=== PATIENT | female | born 1960 | race Caucasian/White ===

== ENCOUNTER 2016-11-10 21:11 | Emergency (ER) | payer OTHER ==
[~2016-11-10] VITALS: Ht 153.7 cm; Wt 65.6 kg
[~2016-11-10 21:11] MED LIST: ACET-62 PO; ALBU18HF2 ORAL INH; CHOL20002 PO; DIPH25CA84 PO; FLUT1DIS3 ORAL INH; IPRA42SP2 NAS; KETO10DR13 BOTH EYES; MELA3TAB30 PO
--- OUTSIDE RECORDS SUMMARY | 2016-11-10 21:16 | XMS REPORT ---
Author Elin Melgar eClinicalWorks Address Unknown Phone Unavailable Care Team Providers Care Geography Department Chair Name Role Phone Elin Maldonado CP Unavailable Allergies, Adverse Reactions, Alerts Substance Reaction Event Type Codeine Sulfate breathing trouble Drug Allergy Problems Problem Type Condition Code Onset Dates Condition Status Assessment COPD 496 Active Problem COPD 496 Active Medications Medication Code System Code Instructions Start Date End Date Status Dosage Tylenol [facility] [address]-19 325 MG Orally every 6 hrs 1 tablet as needed Ibuprofen [facility] [address]-10 200 MG Orally every 6 hrs 1 tablet as needed Proventil HFA [facility] [address]-57 108 (90 Base) MCG/ACT Inhalation every 4 hrs 2 puffs as needed Benadryl [facility] [address]-40 25 MG Orally every 6 hrs 1 tablet as needed Melatonin [facility] [address]-11 3 MG Orally Once a day 1 tablet at bedtime as needed with food Ventolin HFA [facility] [address]-89 108 (90 Base) MCG/ACT Inhalation every 4 hrs Apr 22, 2014 2 puffs as needed Advair Diskus [facility] [address]-56 250-50 MCG/DOSE Inhalation Twice a day 1 puff Procedures Procedure Coding System Code Date COMPREHENSIVE METABOLIC PANEL CPT-4 55897 September 17, 2014 LIPID PANEL CPT-4 50106 September 17, 2014 COMPLETE CBC W/AUTO DIFF WBC CPT-4 86520 September 17, 2014 OFFICE VISIT, EST-LOW COMPLEXITY (15 MIN.) CPT-4 39269 September 17, 2014 TSH CPT-4 17169 September 17, 2014 Vital Signs Date/Time: September 17, 2014 Height 61.5 in Weight 159.0 lbs Temperature 98.1 F Blood Pressure Diastolic 70 mm Hg Blood Pressure Systolic 130 mm Hg Cardiac Monitoring Heart Rate 84 /min BMI 29.55 Index Respiratory Rate 16 /min Results No Known Results Summary Purpose eClinicalWorks Submission
--- OUTSIDE RECORDS SUMMARY | 2016-11-10 21:16 | XMS REPORT ---
Author Author Elin Maldonado [facility] eClinicalWorks Address Unknown Phone Unavailable Care Team Providers Care Medical Leader Name Role Phone Elin Maldonado Unavailable Allergies No Known Allergies Problems Problem Type Condition ICD-9 Code Onset Dates Condition Status Problem COPD 496 Active Medications Medication Code System Code Instructions Start Date End Date Status Dosage Ipratropium [place] [facility] [address]-76 0.02 % Inhalation Three to four times a day Jun 16, 2014 September 14, 2014 Active as directed Vital Signs Date/Time: Mar 19, 2014 Height 61.5 inches Weight 145.12 lbs Temperature 98.5 F Blood Pressure Diastolic 54 mm Hg Blood Pressure Systolic 112 mm Hg Cardiac Monitoring Heart Rate 100 Beats per Minute BMI 26.97 Index Respiratory Rate 16 per Minute Results No Known Results Summary Purpose eClinicalWorks Submission
--- OUTSIDE RECORDS SUMMARY | 2016-11-10 21:16 | XMS REPORT ---
Author Elin Melgar [facility] eClinicalWorks Address Unknown Phone Unavailable Care Team Providers Care Graphic Art Designer Name Role Phone Elin Maldonado CP Unavailable Allergies, Adverse Reactions, Alerts Substance Reaction Event Type Codeine Sulfate breathing trouble Drug Allergy Problems Problem Type Condition ICD-9 Code Onset Dates Condition Status Assessment Chest pain, other 786.59 Active Assessment COPD 496 Active Problem COPD 496 Active Medications Medication Code System Code Instructions Start Date End Date Status Dosage Tramadol HCl [facility] [address]-97 50 MG Orally every 6 hrs Mar 11, 2014 Apr 10, 2014 Active 1 tablet as needed Advair Diskus [facility] [address]-41 250-50 MCG/DOSE Inhalation Twice a day Active 1 puff Melatonin [facility] [address]-33 3 MG Orally Once a day Active 1 tablet at bedtime as needed with food Proventil HFA [facility] [address]-30 108 (90 Base) MCG/ACT Inhalation every 4 hrs Active 2 puffs as needed Ibuprofen [facility] [address]-77 200 MG Orally every 6 hrs Active 1 tablet as needed Tylenol [facility] [address]-13 325 MG Orally every 6 hrs Active 1 tablet as needed Flovent Diskus [facility] [address]-05 250 MCG/BLIST Inhalation Twice a day Mar 19, 2014 Apr 18, 2014 Active 1 puff Benadryl [facility] [address]-06 25 MG Orally every 6 hrs Active 1 tablet as needed Procedures Procedure Coding System Code Date OFFICE VISIT, EST-LOW COMPLEXITY (15 MIN.) CPT-4 84315 Mar 19, 2014 Vital Signs Date/Time: Mar 19, 2014 Height 61.5 inches Weight 145.12 lbs Temperature 98.5 F Blood Pressure Diastolic 54 mm Hg Blood Pressure Systolic 112 mm Hg Cardiac Monitoring Heart Rate 100 Beats per Minute BMI 26.97 Index Respiratory Rate 16 per Minute Results No Known Results Summary Purpose eClinicalWorks Submission
--- OUTSIDE RECORDS SUMMARY | 2016-11-10 21:16 | XMS REPORT ---
Author Author Elin Maldonado [facility] eClinicalWorks Address Unknown Phone Unavailable Care Team Providers Care Cleaning Attendant Name Role Phone Elin Maldonado Unavailable Allergies No Known Allergies Problems Problem Type Condition ICD-9 Code Onset Dates Condition Status Problem COPD 496 Active Medications No Known Medications Vital Signs Date/Time: Mar 19, 2014 Height 61.5 inches Weight 145.12 lbs Temperature 98.5 F Blood Pressure Diastolic 54 mm Hg Blood Pressure Systolic 112 mm Hg Cardiac Monitoring Heart Rate 100 Beats per Minute BMI 26.97 Index Respiratory Rate 16 per Minute Results No Known Results Summary Purpose eClinicalWorks Submission
--- OUTSIDE RECORDS SUMMARY | 2016-11-10 21:16 | XMS REPORT ---
Author Author Elin Maldonado [facility] eClinicalWorks Address Unknown Phone Unavailable Care Team Providers Care Test Pilot Name Role Phone Elin Maldonado Unavailable Allergies [...]
--- OUTSIDE RECORDS SUMMARY | 2016-11-10 21:16 | XMS REPORT ---
Author Elin Melgar [facility] eClinicalWorks Address Unknown Phone Unavailable Care Team Providers Care Tomahawk Weapon System Operator Name Role Phone Elin Maldonado Unavailable Allergies No Known Allergies Problems Problem Type Condition ICD-9 Code Onset Dates Condition Status Problem COPD 496 Active Medications No Known Medications Results No Known Results Summary Purpose eClinicalWorks Submission
--- OUTSIDE RECORDS SUMMARY | 2016-11-10 21:16 | XMS REPORT ---
Author Author Elin Maldonado [facility] eClinicalWorks Address Unknown Phone Unavailable Care Team Providers Care Party Plan Demonstrator Name Role Phone Elin Maldonado Unavailable Allergies No Known Allergies Problems Problem Type Condition Code Onset Dates Condition Status Assessment COPD 496 Active Problem COPD 496 Active Medications Medication Code System Code Instructions Start Date End Date Status Dosage Advair Diskus [facility] [address]-12 250-50 MCG/DOSE Inhalation Twice a day 1 puff Ventolin HFA [facility] [address]-27 108 (90 Base) MCG/ACT Inhalation every 4 hrs Apr 22, 2014 2 puffs as needed Results No Known Results Summary Purpose eClinicalWorks Submission
--- OUTSIDE RECORDS SUMMARY | 2016-11-10 21:16 | XMS REPORT ---
Author Author Elin Maldonado [facility] eClinicalWorks Address Unknown Phone Unavailable Care Team Providers Care Driving Teacher Name Role Phone Elin Maldonado Unavailable Allergies [...]
--- OUTSIDE RECORDS SUMMARY | 2016-11-10 21:16 | XMS REPORT ---
Author Author Dominic Farias Organization eClinicalWorks Address Unknown Phone Unavailable Care Team Providers Care Skiing Teacher Name Role Phone Dominic Farias CP Unavailable Allergies, Adverse Reactions, Alerts Substance Reaction Event Type Codeine Sulfate breathing trouble Drug Allergy Problems Problem Type Condition Code Onset Dates Condition Status Assessment Elevated blood-pressure reading, without diagnosis of hypertension R03.0 Active Problem Nicotine dependence, unspecified, uncomplicated F17.200 Active Problem COPD 496 Active Problem Chronic obstructive pulmonary disease, unspecified J44.9 Active Assessment Encounter for screening for lipoid disorders Z13.220 Active Assessment Insomnia, unspecified G47.00 Active Assessment Chronic obstructive pulmonary disease, unspecified J44.9 Active Assessment Nicotine dependence, unspecified, uncomplicated F17.200 Active Medications Medication Code System Code Instructions Start Date End Date Status Dosage Proventil HFA [facility] [address]-58 108 (90 Base) MCG/ACT Inhalation every 4 hrs 2 puffs as needed Ibuprofen [facility] [address]-57 200 MG Orally every 6 hrs 1 tablet as needed Advair Diskus [facility] [address]-81 250-50 MCG/DOSE Inhalation Twice a day [address] [facility] [address]-87 25 MG Orally every 6 hrs 1 tablet as needed Tylenol [facility] [address]-43 325 MG Orally every 6 hrs 1 tablet as needed Melatonin [facility] [address]-06 3 MG Orally Once a day 1 tablet at bedtime as needed with food Procedures Procedure Coding System Code Date OFFICE VISIT, EST-LOW COMPLEXITY (15 MIN.) CPT-4 81829 Mar 28, 2016 Vital Signs Date/Time: Mar 28, 2016 Temperature 98.2 F Height 61.5 in Weight 147.7 lbs Blood Pressure Diastolic 84 mm Hg Blood Pressure Systolic 144 mm Hg Cardiac Monitoring Heart Rate 92 /min BMI 27.45 Index Oximetry 98 % Respiratory Rate 16 /min Results No Known Results Summary Purpose eClinicalWorks Submission
--- OUTSIDE RECORDS SUMMARY | 2016-11-10 21:16 | XMS REPORT ---
Author Author Dominic Farias Organization eClinicalWorks Address Unknown Phone Unavailable Care Team Providers Care Customer Success Associate Name Role Phone Dominic Farias CP Unavailable Allergies No Known Allergies Problems Problem Type Condition Code Onset Dates Condition Status Problem Nicotine dependence, unspecified, uncomplicated F17.200 Active Problem COPD 496 Active Problem Chronic obstructive pulmonary disease, unspecified J44.9 Active Medications Medication Code System Code Instructions Start Date End Date Status Dosage Proventil HFA [facility] [address]-68 108 (90 Base) MCG/ACT Inhalation every 4 hrs 2 puffs as needed Advair Diskus [facility] [address]-74 250-50 MCG/DOSE Inhalation Twice a day 1 puff Results No Known Results Summary Purpose eClinicalWorks Submission
--- OUTSIDE RECORDS SUMMARY | 2016-11-10 21:16 | XMS REPORT ---
Author Author Elin Maldonado [facility] eClinicalWorks Address Unknown Phone Unavailable Care Team Providers Care Track Subway Repair Supervisor Name Role Phone Elin Maldonado Unavailable Allergies [...]
--- OUTSIDE RECORDS SUMMARY | 2016-11-10 21:16 | XMS REPORT | Continuity of Care Document ---
Author Author [facility] Organization [facility] Address Unknown Phone Unavailable Support Name Relationship Address Phone NOVEMBER, NITHIN Hahn DO Caregiver [address] [place] [address] Unavailable KEKESARAH CABRERAJULIENNE Faith Caregiver [address] [place] [address] Unavailable ROBERT CATALAN Next Of Kin [address] [place] [address] Insurance Providers Guarantor Pat Gates Address [address] [address] Email DENIED/NO EMAIL Payer [employer] Policy Number [id number] Subscriber's Name Pat Gates Relationship 18 Self Group Number [id number] Chief Complaint and Reason for Visit Chief Complaint Adult-Asthma Reason for Visit Panic attack Allergic rhinitis Asthma Problems Past Problems Medical Problem Onset Date Allergic rhinitis Unknown Asthma Unknown Panic attack Unknown Medications Current Home Medications Medication Dose Units Route Directions Days Qty Instructions Start Date Acetaminophen 500 Mg Tablet 2 Tab Oral Every 8 Hours as needed for Pain 12/17/15 Albuterol Sulfate (Ventolin Hfa 90 Mcg/Actuation) 18 Gm Hfa.aer.ad 1 Puff Oral Inhalation Every 4 Hours as needed for Shortness Of Air/Wheezing 12/17/15 Cholecalciferol (Vitamin D3) (Vitamin D) Unknown Strength Capsule 1 Cap Oral Daily 12/17/15 Diphenhydramine Hcl (Benadryl) 25 Mg Capsule 1 Cap Oral Bedtime 12/17/15 Fluticasone/Salmeterol (Advair 250-50 Diskus) 1 Disk W/Dev Inhaler 1 Puff Oral Inhalation Resp.tx Twice A Day for Shortness Of Air/Wheezing 05/23 Ipratropium [place] (Atrovent) 15 Ml [place] 2 [place] Intranasal Four Times Daily 15 Milliliter 12/17/15 Ketotifen Fumarate (Allergy Eye Drops) 10 Ml Drops 1 Drop Both Eyes Twice A Day 12/17/15 Melatonin 3 Mg Tablet 3 Mg Oral Bedtime 12/17/15 Social History Social History Problem Response Recorded Date/Time Onset Date Status Tobacco Usage none 12/17/2015 4:59pm Not Applicable Not Applicable Query Response Start Date Stop Date Smoking Status Former smoker Hospital Discharge Instructions No hospital discharge instructions. Plan of Care Discharge Date 12/17/15 6:30pm Disposition 01 DISCHARGED HOME, SELF-CARE Condition at Discharge Improved Instructions/Education Provided Panic Disorder Asthma -- Adult Prescriptions See Medication Section Referrals LIANNA DAVIES Order Date: 3 Days Address: [address] [place] [id number] Note: Additional Instructions/Education For your nasal congestion, you may take 25- 50mg of benadryl every 6 hours, nasal saline, or intranasal ipratroprium. Follow up with your doctor as directed. Care Plan and Goals Physician Care Plan Problem: Panic attack, asthma, allergic rhinitis Goal: Follow up with primary care provider Instructions: Take medications and follow care plan as discussed/written Functional Status No functional status results. Allergies, Adverse Reactions, Alerts Allergen Type Severity Reaction Status Last Updated Codeine Allergy Unknown Active 01/18/11 Immunizations No immunization records. Vital Signs Acute Vital Signs Vital Response Date/Time Temperature (Fahrenheit) 98.5 deg F (96.8 - 99.1) 12/17/2015 4:45pm Temperature (Calculated Celsius) 36.33477 degrees C (36.0 - 37.3) 12/17/2015 4:45pm Pulse Rate (adult) 100 bpm (60 - 100) 12/17/2015 4:45pm Respiratory Rate 16 breaths/min (10 - 20) 12/17/2015 4:45pm O2 Sat by Pulse Oximetry 99 % (90 - 100) 12/17/2015 4:58pm Blood Pressure 126/65 mm Hg 12/17/2015 4:45pm Results Laboratory Results Test Name Result Units Flags Reference Collection Date/Time Result Date/ Time Comments White Blood Count 8.2 T/MM3 4.5-11.0 12/17/2015 5:05pm 12/17/2015 5: 21pm Red Blood Count 4.48 M/MM3 4.00-5.20 12/17/2015 5:05pm 12/17/2015 5: 21pm Hemoglobin 14.8 GM/DL 12-16 12/17/2015 5:05pm 12/17/2015 5:21pm Hematocrit 44.6 % 36-46 12/17/2015 5:05pm 12/17/2015 5:21pm Mean Corpuscular Volume 99.6 UM3 80-100 12/17/2015 5:05pm 12/17/2015 5: 21pm Mean Corpuscular Hemoglobin 33.0 UUG 26-34 12/17/2015 5:05pm 2015 5:21pm Mean Corpuscular Hemoglobin Concent 33.2 GM/DL 31-37 12/17/2015 5:05pm 12/17/2015 5:21pm RDW Standard Deviation 47.7 FL 36.9-50.2 12/17/2015 5:05pm 12/17/2015 5 :21pm Platelet Count 210 T/MM3 130-400 12/17/2015 5:05pm 12/17/2015 5:21pm Mean Platelet Volume 11.5 UM3 9.4-12.4 12/17/2015 5:05pm 12/17/2015 5: 21pm Neutrophils (%) (Auto) 62.0 % 33-66 12/17/2015 5:05pm 12/17/2015 5: 21pm Lymphocytes (%) (Auto) 28.6 % 23-45 12/17/2015 5:05pm 12/17/2015 5: 21pm Monocytes (%) (Auto) 8.3 % 0-9.0 12/17/2015 5:05pm 12/17/2015 5:21pm Eosinophils (%) (Auto) 0.4 % 0-4 12/17/2015 5:05pm 12/17/2015 5:21pm Basophils (%) (Auto) 0.5 % 0-2 12/17/2015 5:05pm 12/17/2015 5:21pm Immature Granulocyte % (Auto) 0.2 % 0.0-0.5 12/17/2015 5:05pm 2015 5:21pm Absolute Neutrophils (auto) 5.1 T/MM3 1.8-7.7 12/17/2015 5:05pm 2015 5:21pm Absolute Lymphocytes (auto) 2.4 T/MM3 1-4.8 12/17/2015 5:05pm 2015 5:21pm Absolute Monocytes (auto) 0.7 T/MM3 0-0.8 12/17/2015 5:05pm 12/17/2015 5:21pm Absolute Eosinophils (auto) 0.0 T/MM3 0-0.5 12/17/2015 5:05pm 2015 5:21pm Absolute Basophils (auto) 0.0 T/MM3 0-0.2 12/17/2015 5:05pm 12/17/2015 5:21pm Absolute Immature Granulocyte (auto 0.02 T/MM3 0.00-0.03 12/17/2015 5: 05pm 12/17/2015 5:21pm Icterus Index < 2 0-7 12/17/2015 5:pm 12/17/2015 5:29pm Chemistry Specimen Hemolysis < 15 0-25 12/17/2015 5:12/17/2015 5 :29pm 0-25: Specimen Exhibited No Hemolysis. Turbidity < 20 0-20 12/17/2015 5:pm 12/17/2015 5:29pm Sodium Level 139 MEQ/L 134-144 12/17/2015 5:12/17/2015 5:29pm Potassium Level 3.3 MEQ/L L 3.6-5 12/17/2015 5:pm 12/17/2015 5:29pm Chloride Level 104 MEQ/L 98-107 12/17/2015 5:12/17/2015 5:29pm Carbon Dioxide Level 19 MEQ/L L 22-30 12/17/2015 5:12/17/2015 5: 29pm Anion Gap 16 MEQ/L H 5-15 12/17/2015 5:12/17/2015 5:29pm Blood Urea Nitrogen 8.0 MG/DL 7-17 12/17/2015 5:12/17/2015 5:29pm Creatinine 0.6 MG/DL L 0.7-1.2 12/17/2015 5:05pm 12/17/2015 5:29pm BUN/Creatinine Ratio 13 RATIO 6-12/17/2015 5:05pm 12/17/2015 5:29pm Glomerular Filtration Rate Calc 104 12/17/2015 5:05pm 12/17/2015 5: 29pm Glucose Level 107 MG/DL 65-110 12/17/2015 5:0512/17/2015 5:29pm Calculated Osmolality 266 MOSM/KG 261-280 12/17/2015 5:05pm 12/17/2015 5:29pm Calcium Level 9.1 MG/DL 8.4-10.2 12/17/2015 5:05pm 12/17/2015 5:29pm Plasma Lactate 2.7 MMOL/L H 0.6-2.2 12/17/2015 5:05pm 12/17/2015 5:28pm Influenza Type A Antigen NEGATIVE NEGATIVE 12/17/2015 6:14pm 2015 6:38pm Negative for Flu A protein antigen. Assay sensitivity is 90%. Influenza Type B Antigen NEGATIVE NEGATIVE 12/17/2015 6:14pm 2015 6:38pm Negative for Flu B protein antigen. Assay sensitivity is 90%. Microbiology Results Procedure Source Organism/Result Collection Date/Time Result Date/Time Result Status Blood Culture Peripheral/Iv Start CULTURE INITIATED - RESULTS PENDING 12/16 5:12pm 12/17/2015 5:17pm Preliminary Procedures No known history of procedures. Encounters Encounter Location Arrival/Admit Date Discharge/Depart Date Attending Provider Departed Emergency Room [facility] 12/17/15 4:40pm 12/17/15 6: 30pm NITHIN SAMS DO Recent Diagnosis
--- OUTSIDE RECORDS SUMMARY | 2016-11-10 21:17 | XMS REPORT ---
Author Author Dominic Farias Organization eClinicalWorks Address Unknown Phone Unavailable Care Team Providers Care Hoeing Row Boss Name Role Phone Dominic Farias CP Unavailable Allergies No Known Allergies Problems Problem Type Condition Code Onset Dates Condition Status Problem Nicotine dependence, unspecified, uncomplicated F17.200 Active Problem COPD 496 Active Problem Chronic obstructive pulmonary disease, unspecified J44.9 Active Medications No Known Medications Results No Known Results Summary Purpose eClinicalWorks Submission
--- OUTSIDE RECORDS SUMMARY | 2016-11-10 21:17 | XMS REPORT ---
Author Author Elin Maldonado [facility] eClinicalWorks Address Unknown Phone Unavailable Care Team Providers Care Health And Social Care Teacher Name Role Phone Elin Maldonado Unavailable Allergies No Known Allergies Problems Problem Type Condition ICD-9 Code Onset Dates Condition Status Problem COPD 496 Active Medications Medication Code System Code Instructions Start Date End Date Status Dosage Ventolin HFA [facility] [address]-08 108 (90 Base) MCG/ACT Inhalation every 4 hrs Apr 22, 2014 2 puffs as needed Advair Diskus [facility] [address]-74 250-50 MCG/DOSE Inhalation Twice a day 1 puff Results No Known Results Summary Purpose eClinicalWorks Submission
--- OUTSIDE RECORDS SUMMARY | 2016-11-10 21:17 | XMS REPORT ---
Author Elin Melgar [facility] eClinicalWorks Address Unknown Phone Unavailable Care Team Providers Care Merchandise Flow Manager Name Role Phone Elin Maldonado Unavailable Allergies No Known Allergies Problems Problem Type Condition ICD-9 Code Onset Dates Condition Status Problem COPD 496 Active Medications No Known Medications Results No Known Results Summary Purpose eClinicalWorks Submission
[2016-11-10 21:33] VITALS: Ht 153.7 cm; Wt 65.6 kg
--- NOTE | 2016-11-10 22:26 | ERPDOC ---
Departure Disposition Decision Date: November 11, 2016 Disposition Decision Time: 00:24 (HOLLIS BRUCE APRN) Disposition: 01 DISCHARGED HOME, SELF-CARE Impression Impression (HOLLIS BRUCE APRN) Impression: Primary Impression: Back pain Back pain location: low back pain Chronicity: acute Back pain laterality: bilateral Sciatica presence: without sciatica Qualified Codes: M54.5 - Low back pain Additional Impression: Fall Encounter type: initial encounter Qualified Codes: W19.XXXA - Unspecified fall, initial encounter Severity: Moderate (HOLLIS BRUCE APRN) Condition: Improved Seen By: Mid-level only (HOLLIS BRUCE APRN) Referrals: LIANNA DAVIES (Family) Patient Instructions: Back Pain (ED) Problems/Meds/Labs Reviewed?: Yes Medications reviewed and manag: Yes (HOLLIS BRUCE APRN) Additional Instructions: Your x-rays did not show any fractures or acute findings. You may take diclofenac 75mg twice daily for pain with food. You may take cyclobenzaprine 10mg every 8 hours as needed for muscle spasms. This medication may cause drowsiness so avoid driving, operating heavy machinery or drinking alcohol while taking. You may take 1-2 norco 5/325mg every 4-6 hours as needed for pain. This medication may cause drowsiness so avoid driving, operating heavy machinery or drinking alcohol while taking. Follow with your doctor Saturday if your symptoms are not improving and you feel you cannot return to work. Follow treatment plan. Departure Forms: Return to Work/School Permit Return to Work/School Date: November 12, 2016 Follow up care ordered?: Yes Mental Status: Alert, Oriented (HOLLIS BRUCE APRN) Scripts Cyclobenzaprine HCl (Cyclobenzaprine HCl) 10 Mg Tablet 1 TAB PO TID Y for MUSCLE PAIN, #10 TAB Prov: HOLLIS BRUCE APRN 11/11/16 Hydrocodone/Acetaminophen ([place] 5-325 Tablet) 5-325 Tablet 1-2 TAB PO Q4-6HPRN Y for PAIN, #15 TAB Prov: HOLLIS BRUCE APRN 11/11/16 Diclofenac Sodium (Diclofenac Sodium) 75 Mg Tablet.dr 1 TAB PO BID for 10 Days, #20 TAB Prov: HOLLIS BRUCE APRN 11/11/16 HPI - Back Pain General Chief Complaint: Back Pain or Injury Stated Complaint: BACK PAIN Time Seen by Provider: 22:00 Source: patient (HOLLIS BRUCE APRN) Time Seen by Provider: 22:00 (SIMI GONZALEZ DO) HPI - Back Pain Initial Comments 56-year-old female presents to ED with bilateral lower lumbar and sacral pain. 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 Denies striking her head, loss of consciousness, neck pain, loss of sensation/function/numbness/tingling to lower extremities, loss of bowel/bladder, or other injuries. Pain/Severity Scale: Now: 9/10 Location: lumbar spine, coccyx Method of Injury/Context: fell Associated Sypmtoms: lower back pain, DENIES: fever, loss of bladder control, loss of bowel control, numbness in legs/feet, sensory/motor loss, tingling in legs/feet, weakness (HOLLIS BRUCE APRN) Allergies: Coded Allergies: Codeine (Verified Allergy, Unknown, 01/18/11) Past History Past Medical History Metabolic: cancer (uterine) ENMT: allergies Cardiac: DENIES: angina Respiratory: COPD, asthma, pneumonia GI: GERD Female: DENIES: renal insufficiency Neurological: DENIES: seizures Musculoskeletal: DENIES: rheumatoid arthritis Psychological: bipolar (HOLLIS BRUCE APRN) Surgical History Reproductive/: hysterectomy (HOLLIS BRUCE APRN) Family History Family PMH: FOUND: other (noncontributory) (HOLLIS BRUCE APRN) Social History Smoking Status: Current every day smoker Current Occupational Status: employed (HOLLIS BRUCE APRN) Review of Systems Constitutional Constitutional: DENIES: chills, dizziness, fever, weakness (HOLLIS BRUCE APRN) Eyes General: DENIES: erythema, exudate Lids/Accessories: DENIES: erythema, swelling (HOLLIS BRUCE APRN) ENMT Ears: DENIES: pain Sinuses: DENIES: congestion, rhinorrhea Mouth/Throat: DENIES: sore throat (HOLLIS BRUCE APRN) Cardiovascular Cardiac: DENIES: chest pain, murmur Rhythm/Rate: DENIES: palpitations (HOLLIS BRUCE APRN) Pulmonary Respiratory: DENIES: cough, dyspnea (HOLLIS BRUCE APRN) GI Upper Abdomen: DENIES: nausea, pain, vomiting Lower Abdomen: DENIES: diarrhea, pain (LORY BRUCES A APPLICATION ARCHITECT MANAGER) General: DENIES: dysuria, pain (LORY BRUCES A APPLICATION ARCHITECT MANAGER) Musculoskeletal General: pain, see HPI (LORY BRUCES A APPLICATION ARCHITECT MANAGER) Integumentary Skin: DENIES: color change, itching, rash (LORY BRUCES A APPLICATION ARCHITECT MANAGER) Neurological General: DENIES: ataxia, change in strength, numbness, paralysis/paresis, weakness (LORY BRUCES A APPLICATION ARCHITECT MANAGER) Psychiatric Psychiatric: DENIES: anxiety, depression, nervousness (LORY BRUCES A APPLICATION ARCHITECT MANAGER) Physical Exam General General Nourishment: well nourished, well developed, adult General Body Habitus: well groomed (LOYR BRUCES A APPLICATION ARCHITECT MANAGER) Vitals and Pain First Documented Vital Signs Date Time Temp Pulse Resp B/P Pulse Ox O2 Delivery O2 Flow Rate FiO2 11/10/16 21:33 98.4 79 18 154/70 95 Room Air (SIMI GONZALEZ DO) Vitals and Pain Weight: Kilograms: 65.600 Height (feet): 5 Height (inches): 0.50 Triage Pain Scale: (LORY BRUCES A APPLICATION ARCHITECT MANAGER) Eyes (brief) Eyes Brief: found: EOMI, PERRL (LORY BRUCES A APPLICATION ARCHITECT MANAGER) ENMT (brief) ENMT Brief: NOT FOUND: nasal exudate, nasal swelling (LORY BRUCES A APPLICATION ARCHITECT MANAGER) Neck (brief) Neck: FOUND: trachea midline, NOT FOUND: adenopathy, tenderness, thyromegaly ( LORY BRUCES A APPLICATION ARCHITECT MANAGER) Respiratory (brief) Respiratory: FOUND: clear all watson, equal bilaterally, symmetrical (LORY BRUCES A APPLICATION ARCHITECT MANAGER) Cardiovascular (brief) Cardiac: FOUND: regular rate, regular rhythm (LORY BRUCES A APPLICATION ARCHITECT MANAGER) Musculoskeletal Back: NOT FOUND: other (no ecchymosis, erythema or swelling), spasm, spine point tenderness, tenderness (LORY BRUCES A APPLICATION ARCHITECT MANAGER) Integumentary (brief) Integumentary Brief: FOUND: dry, lesions, pink, warm (LORY BRUCES A APPLICATION ARCHITECT MANAGER) Neurologic (brief) Neurological Brief: FOUND: CN w/o gross def to obs (LORY BRUCES A APPLICATION ARCHITECT MANAGER) Neurologic Mental Status: FOUND: alert, oriented Cranial Nerves: NOT FOUND: facial asymmetry Motor : Motor Side: bilateral Motor Location: foot extension, foot flexion Motor Degree: 5 Sensation: FOUND: soft touch intact x4 ext DTR's : DTR Side: bilateral DTR Location: Triceps, Patellar DTR Grade: 2+ (HOLLIS BRUCE APRN) Psychiatric (brief) Psychiatric Brief: FOUND: normal affect (HOLLIS BRUCE APRN) Differential Diagnoses Considering: Fracture, Lumbar Sprain, Lumbar Strain, Other (Contusion) (HOLLIS BRUCE APRN) Progress Results/Orders Orders Procedure Category Date Status Time Ketorolac (Toradol) PHA 11/10/16 Complete 22:45 Orphenadrine (Norflex) PHA 11/10/16 Complete 22:45 Lumbar Spine 2-3 Views RAD 11/10/16 Resulted Sacrum & Coccyx RAD 11/10/16 Resulted Morphine Sulfate PHA 11/10/16 Complete (Morphine) 23:45 Hydrocodone/Apap PHA 11/11/16 Complete Prepack ([place] 5 00:45 (SIMI GONZALEZ DO) Medications Current ED Medications Ketorolac Tromethamine (Toradol) 60 mg O ONCE IM Last administered on 22:54; Start 11/10/16 at 22:45; Stop 11/10/16 at 22:46; Status DC Orphenadrine Citrate (Norflex) 60 mg O ONCE IM Last administered on 11/10/16 22:54; Start 11/10/16 at 22:45; Stop 11/10/16 at 22:46; Status DC Morphine Sulfate (Morphine) 4 mg O ONCE IM Last administered on 11/10/16 23:58 ; Start 11/10/16 at 23:45; Stop 11/10/16 at 23:46; Status DC Acetaminophen/ Hydrocodone Bitart (NORCO 5 (PrePack)) 1 pack O ONCE SENT HOME Last administered on 11/11/16 00:53; Start 11/11/16 at 00:45; Stop 11/11/16 at 00: 46; Status DC (SIMI GONZALEZ DO) Progress Progress Patient reports improvement of pain from 9/10 to 7/10 after toradol and norflex.. I discussed x-ray findings and answered questions. Patient reports additional improvement of pain after morphine IM. Patient is discharged improved home. Patient verbalized understanding of treatment plan, close follow up with PCP/occupational medicine physician and return precautions. (HOLLIS BRUCE APRN) Xray Xray #1: Xray: L-Spine (no acute finding (Dr. Gonzalez)) Xray #2: Xray: Sacrum/Coccyx (no acute findings) Interpretation: Faxed Report (HOLLIS BRUCE APRN) HOLLIS BRUCE APRN November 10, 2016 22:26 SIMI GONZALEZ DO November 12, 2016 01:33
[2016-11-10] MEDS ORDERED: KETOROLAC 60mg/2ml INJECTION IM ONE (22:45)
[2016-11-10] MEDS ORDERED: ORPHENADRINE 60mg/2ml INJECTION IM ONE (22:45)
--- NOTE | 2016-11-10 22:54 | NUR ---
EDS PT GIVEN NORFLEX AND TORADOL IM PT JUDIE WELL
--- NOTE | 2016-11-10 23:10 | NUR ---
XRAY PT TAKEN TO XRAY PER CART
--- NOTE | 2016-11-10 23:30 | NUR ---
ROOM PT RETURNED TO ROOM 1 PER CART FROM XRAY
--- NOTE | 2016-11-10 23:32 | NUR ---
STATUS PT REPORTS HER PAIN WAS BETTER UNTIL SHE LAYED FLAT ON THE HARD XRAY TABLE STATES PAIN WAS ABOUT 5/10, NOW IT IS 7/10
[2016-11-10] MEDS ORDERED: MORPHINE SULFATE 4 MG SYRINGE IM ONE (23:45)
--- NOTE | 2016-11-10 23:49 | NUR ---
ANXIOUS PT IS VERY NERVOUS ABOUT TAKING MORPHINE STATES SHE HAS NEVER HAD IT BEFORE AND HAS SEEN "OLD PEOPLE" AT THE INTERMEDIATE DO CRAZY THINGS WHEN THEY TAKE MORPHINE. REPORTS ALL SHE HAS EVER HAD IS DEMEROL AND WE DON'T USE IT ANY MORE AFTER TALKING WITH PT ABOUT EACH PERSON BEING DIFFERENT AND HOW THEY RESPOND TO MEDICATION AND THERE IS NO "GUARANTEE" IF SHE WILL "BE OKAY" WITHOUT THE MORPHINE CAUSING HER TO HAVE A PANIC ATTACK. PT DECIDED BECAUSE OF THE PAIN TO GO AHEAD AND TAKE THE MORPHINE INJECTION. PT ASSURED SHE WILL BE HERE IN THE ED IF SHE HAS PROBLEMS, WE ARE NOT JUST GOING TO DISMISS HER AFTER THE MED
--- NOTE | 2016-11-10 23:54 | NUR ---
Patti fuentes in EDM - 11/11/16 at 0543 by [facility] PT GIVEN NORFLEX AND TORADOL IM PT JUDIE WELL
--- NOTE | 2016-11-10 23:58 | NUR ---
MORPHINE PT GIVEN IM MORPHINE FOR PAIN SITTING IN CHAIR AFTER INJECTION
--- NOTE | 2016-11-11 00:13 | NUR ---
STATUS PT REPORTS SHE IS DOING OKAY, NO ANXIETY REPORTS SHE IS STARTING TO GET SOME PAIN RELIEF
[2016-11-11] MEDS ORDERED: HYDR-4246 PO (00:29)
[2016-11-11] MEDS ORDERED: DICL75TA5 PO (00:29)
[2016-11-11] MEDS ORDERED: CYCL-375 PO (00:29)
[2016-11-11] MEDS ORDERED: HYDROCODONE/APAP 5/325 (PrePack) SENT HOME ONE (00:45)
--- NOTE | 2016-11-11 00:53 | NUR ---
INSTRUCTIONS DISMISSAL AND MEDICATION INSTRUCTIONS GIVEN TO PT DISP PREPACK NORCO WITH INSTRUCTIONS 3RX GIVEN FOR BACLOFEN, NORCO AND CYCLOBENZAPRINE WITH INSTRUCTIONS PT VERBALIZED UNDERSTANDING OF ALL
--- NOTE | 2016-11-11 00:55 | NUR ---
NOTE WORK NOTE PROVIDED FOR PT
[2016-11-11 00:56] VITALS: BP 154/70; PULSE 79; RESP 18; TEMP 98.4; O2SAT 95
--- NOTE | 2016-11-11 00:56 | NUR ---
DISMISS PT DISMISSED PER W/C WITH SISTER PT ESCORTED TO TRUCK BY RN
--- NOTE | 2016-11-11 08:14 | DI ---
Indication: ITS.REASON: pain L1 to to coccyx PROCEDURE: LUMBAR SPINE 2-3 VIEWS: Encounter: Initial Comparison: None Findings: No acute fracture or subluxation seen. Vertebral body heights are maintained. Mild to moderate disk space narrowing at L2-L3 with mild disk height loss at L3-L4. Degenerative facet disease at L5-S1. Impression: No acute fracture. There is a preliminary report by [facility]. .
--- NOTE | 2016-11-11 08:14 | DI ---
Indication: ITS.REASON: L1 to coccyx PROCEDURE: SACRUM COCCYX: Encounter: Initial Comparison: None Finding/ Impression: No acute displaced sacrococcygeal fracture. There is a preliminary report by [facility]. .
== END 2016-11-11 00:56 | disposition home or self-care (01) ==
LOC: ED 21:11
DX: S39.92XA Unspecified injury of lower back, initial encounter (principal); W18.30XA Fall on same level, unspecified, initial encounter; Y93.F2 Activity, caregiving, lifting; Y92.9 Unspecified place or not applicable; Y99.0 Civilian activity done for income or pay
CPT/HCPCS: 72100; 72220; 96372; 99283; J1885; J2360